=== PATIENT | male | born 1985 | race Hispanic/Latino ===

== ENCOUNTER 2018-10-10 17:08 | Emergency (ER) | payer BC ==
--- NOTE | 2018-10-10 17:14 | Emergency Department Report ---
Blank Doc - Documentation Documentation: This is a 33-year-old male that presents with left knee pain. Denies any inju katheryn. This initial assessment/diagnostic orders/clinical plan/treatment(s) is/are subject to change based on patient's health status, clinical progression and re- assessment by fellow clinical providers in the ED. Further treatment and workup at subsequent clinical providers discretion. Patient/guardians urged not to elope from the ED as their condition may be serious if not clinically assessed and managed. Initial orders include: 1- Patient sent to [facility] for further evaluation and treatment
[2018-10-10 17:15] VITALS: BP 142/92
--- NOTE | 2018-10-10 19:50 | Emergency Department Report ---
ED Lower Extremity HPI - General Chief Complaint: Extremity Problem,Nontraumatic Stated Complaint: LT KNEE PAIN Time Seen by Provider: 10/10/18 17:13 Source: patient Mode of arrival: Ambulatory Limitations: No Limitations - History of Present Illness Initial Comments: 33yo male stated that he has gradual L knee pain without injury over the past days. He reports that his knee is warm, aching and tender to touch. Pt stated that he can not remember injuring his L knee directly, he then stated that he has ate fish recently and that it could be a correlation with his pain. Onset/Timin -: days(s) Injury: Knee: Left Type of Injury: unknown Place: other (Pt stated that it has a gradual onset) Severity: moderate Severity scale (0 -10): 7 Improves With: rest Worsens With: movement Associated Symptoms: able to partially bear weight - Related Data Previous Rx's Medication Instructions Recorded Last Taken Type Naproxen [EC-Naproxen] 500 mg PO BID 7 Days #14 tablet. 10/10/18 Unknown Rx methylPREDNISolone [Medrol 4MG 4 mg PO QDAY #21 tab.ds.pk 10/10/18 Unknown Rx DOSEPAK (21 tabs)] Allergies Allergy/AdvReac Type Severity Reaction Status Date / Time No Known Allergies Allergy Verified 10/10/18 17:09 ED Review of Systems ROS: Stated complaint: LT KNEE PAIN Other details as noted in HPI Comment: All other systems reviewed and negative ED Past Medical Hx - Past Medical History Previous Medical History?: Yes Additional medical history: Gout - Surgical History Past Surgical History?: Yes Additional Surgical History: Lithotripsy - Social History Smoking Status: Never Smoker Substance Use Type: None - Medications Home Medications: Home Medications Medication Instructions Recorded Confirmed Last Taken Type Naproxen [EC-Naproxen] 500 mg PO BID 7 Days #14 tablet. 10/10/18 Unknown Rx methylPREDNISolone [Medrol 4MG 4 mg PO QDAY #21 tab.ds.pk 10/10/18 Unknown Rx DOSEPAK (21 tabs)] ED Physical Exam - General Limitations: No Limitations - Expanded Lower Extremity Exam Left Knee exam: Present: full ROM, tenderness, swelling (warmth present in L knee) ED Course Vital Signs 10/10/18 17:13 Temperature 98.7 F Pulse Rate 105 H Respiratory 20 Rate Blood Pressure 142/92 O2 Sat by Pulse 99 Oximetry ED Lower Extremity MDM - Medical Decision Making 33yo male stated that he has gradual L knee pain without injury over the past days. He reports that his knee is warm, aching and tender to touch. Pt stated that he can not remember injuring his L knee directly, he then stated that he has ate fish recently and that it could be a correlation with his pain. Pt was given injections of 20mg of Dexmethasone and 30mg of Toradol. Upon discharge, he was given Naproxen 500 BID x 7 days and a prednisone steroid pack. He was instructed to follow a low purine diet. A handout was provided to give additional information on gout. Critical care attestation.: If time is entered above; I have spent that time in minutes in the direct care of this critically ill patient, excluding procedure time. ED Disposition Clinical Impression: Gout attack Disposition: DC-01 TO HOME OR SELFCARE Is pt being admited?: No Does the pt Need Aspirin: No Condition: Good Instructions: Acute Gouty Arthritis (ED) Additional Instructions: Pt was instructed to continue low purine diet. He was also instructed to begin steroid dose pack tomorrow and take Naproxen as needed on 10/11/18 Prescriptions: Naproxen [EC-Naproxen] 500 mg PO BID 7 Days #14 tablet. methylPREDNISolone [Medrol 4MG DOSEPAK (21 tabs)] 4 mg PO QDAY #21 tab.ds.pk Referrals: MARYSE KINNEY MD [Primary Care Provider] - 3-5 Days Forms: Work/School Release Form(ED)
[2018-10-10] MEDS ORDERED: DECADRON IM ONE (19:53)
[2018-10-10] MEDS ORDERED: TORADOL IM ONE (19:55)
== END 2018-10-10 20:17 | disposition home or self-care (01) ==
LOC: ED 17:08
DX: M10.062 Idiopathic gout, left knee (principal)
CPT/HCPCS: 96372; 99282; J1100; J1885

== ENCOUNTER 2018-12-19 18:22 | Emergency (ER) | payer SELFPAY ==
[2018-12-19 18:36] VITALS: BP 140/93
--- NOTE | 2018-12-19 18:43 | Emergency Department Report ---
Blank Doc - Documentation Documentation: 33-year-old male that presents with right foot pain with swelling with hx of g out. Denies any trauma. This initial assessment/diagnostic orders/clinical plan/treatment(s) is/are subject to change based on patient's health status, clinical progression and re- assessment by fellow clinical providers in the ED. Further treatment and workup at subsequent clinical providers discretion. Patient/guardians urged not to elope from the ED as their condition may be serious if not clinically assessed and managed. Initial orders include: 1- Patient sent to [facility] for further evaluation and treatment
[2018-12-19] MEDS ORDERED: methylPREDNISolone Sod Succinate 125 MG/2 ML INJ IM ONE (20:03)
--- NOTE | 2018-12-19 20:05 | Emergency Department Report ---
ED General Adult HPI - General Chief complaint: Extremity Problem,Nontraumatic Stated complaint: RT ANKLE (GOUT) Time Seen by Provider: 12/19/18 18:42 Source: patient Mode of arrival: Ambulatory Limitations: No Limitations - History of Present Illness Initial comments: Patient complains of gout in his left ankle not relieved by Ibuprofen or Cholchicine. patient states the pain has been present since tuesday. Denies fever - Related Data Previous Rx's Medication Instructions Recorded Last Taken Type Naproxen [EC-Naproxen] 500 mg PO BID 7 Days #14 tablet. 10/10/18 Unknown Rx methylPREDNISolone [Medrol 4MG 4 mg PO QDAY #21 tab.ds.pk 10/10/18 Unknown Rx DOSEPAK (21 tabs)] Prednisone [predniSONE 10 mg 10 mg PO .TAPER #1 tab.ds.pk 12/19/18 Unknown Rx (6-Day Pack, 21 Tabs)] Allergies Allergy/AdvReac Type Severity Reaction Status Date / Time No Known Allergies Allergy Verified 12/19/18 18:26 ED Review of Systems ROS: Stated complaint: RT ANKLE (GOUT) Other details as noted in HPI Constitutional: denies: chills, fever Eyes: denies: eye pain, eye discharge, vision change ENT: denies: ear pain, throat pain Respiratory: denies: cough, shortness of breath, wheezing Cardiovascular: denies: chest pain, palpitations Endocrine: no symptoms reported Gastrointestinal: denies: abdominal pain, nausea, diarrhea Genitourinary: denies: urgency, dysuria Musculoskeletal: denies: back pain, joint swelling, arthralgia Skin: denies: rash, lesions Neurological: denies: headache, weakness, paresthesias Psychiatric: denies: anxiety, depression Hematological/Lymphatic: denies: easy bleeding, easy bruising ED Past Medical Hx - Past Medical History Previous Medical History?: Yes Additional medical history: Gout - Surgical History Past Surgical History?: Yes Additional Surgical History: Lithotripsy - Social History Smoking Status: Never Smoker Substance Use Type: None - Medications Home Medications: Home Medications Medication Instructions Recorded Confirmed Last Taken Type Naproxen [EC-Naproxen] 500 mg PO BID 7 Days #14 tablet. 10/10/18 Unknown Rx methylPREDNISolone [Medrol 4MG 4 mg PO QDAY #21 tab.ds.pk 10/10/18 Unknown Rx DOSEPAK (21 tabs)] Prednisone [predniSONE 10 mg 10 mg PO .TAPER #1 tab.ds.pk 12/19/18 Unknown Rx (6-Day Pack, 21 Tabs)] ED Physical Exam - General Limitations: No Limitations General appearance: alert, in no apparent distress - Head Head exam: Present: atraumatic, normocephalic - Eye Eye exam: Present: normal appearance, PERRL, EOMI - ENT ENT exam: Present: mucous membranes moist - Neck Neck exam: Present: normal inspection - Respiratory Respiratory exam: Present: normal lung sounds bilaterally. Absent: respiratory distress - Cardiovascular Cardiovascular Exam: Present: regular rate, normal rhythm. Absent: systolic murmur, diastolic murmur, rubs, gallop - Rectal Rectal exam: Present: deferred - Extremities Exam Extremities exam: Present: other (left ankle ttp with erythema) - Back Exam Back exam: Present: normal inspection - Neurological Exam Neurological exam: Present: alert, oriented X3 - Psychiatric Psychiatric exam: Present: normal affect, normal mood - Skin Skin exam: Present: warm, dry, intact, normal color. Absent: rash ED Course Vital Signs 12/19/18 18:28 Temperature 98.0 F Respiratory 20 Rate Blood Pressure 140/93 ED Medical Decision Making - Medical Decision Making patient declined pain meds Critical care attestation.: If time is entered above; I have spent that time in minutes in the direct care of this critically ill patient, excluding procedure time. ED Disposition Clinical Impression: Gout Disposition: DC- TO HOME OR SELFCARE Is pt being admited?: No Does the pt Need Aspirin: No Condition: Stable Instructions: Acute Gouty Arthritis (ED) Additional Instructions: return if worse Prescriptions: Prednisone [predniSONE 10 mg (6-Day Pack, 21 Tabs)] 10 mg PO .TAPER #1 tab.ds.pk Referrals: [facility] [Provider Group] - 3-5 Days [facility] [Provider Group] - 3-5 Days Time of Disposition: 20:09
== END 2018-12-19 20:39 | disposition home or self-care (01) ==
LOC: ED 18:22
DX: M10.071 Idiopathic gout, right ankle and foot (principal); Z79.899 Other long term (current) drug therapy
CPT/HCPCS: 96372; 99281; J2930

== ENCOUNTER 2020-03-19 09:50 | Emergency (ER) | payer SELFPAY ==
--- NOTE | 2020-03-19 10:06 | Event Note ---
ED Screening Note ED Screening Note: sob covid expos sat 95 mild fever pmh none This initial assessment/diagnostic orders/clinical plan/treatment(s) is/are subject to change based on patients health status, clinical progression and re- assessment by fellow clinical providers in the ED. Further treatment and workup at subsequent clinical providers discretion. Patient/guardian urged not to elope from the ED as their condition may be serious if not clinically assessed and managed. Initial orders include: xr
[2020-03-19 10:08] VITALS: BP 142/84
--- NOTE | 2020-03-19 10:33 | XRay Report ---
CHEST 2 VIEWS INDICATION / CLINICAL INFORMATION: Shortness of breath COMPARISON: None available. FINDINGS: SUPPORT DEVICES: None. HEART / MEDIASTINUM: No significant abnormality. LUNGS / PLEURA: There are patchy pulmonary opacities in the right midlung and left lower lung. No pne umothorax. ADDITIONAL FINDINGS: No significant additional findings. IMPRESSION: 1. Patchy bilateral pulmonary opacities that may indicate viral pneumonia. Signer Name: Mamadou Meredith MD Signed: 03/19/2020 10:28 AM Workstation Name: [id number]
--- NOTE | 2020-03-19 10:53 | Emergency Department Report ---
ED General Adult HPI - General Chief complaint: Upper Respiratory Infection Stated complaint: FLU Time Seen by Provider: 03/19/20 10:05 Source: patient Mode of arrival: Ambulatory Limitations: No Limitations - History of Present Illness Initial comments: Patient is a 34-year-old male with no past medical history presents emergency department for evaluation of 1 week of flulike symptoms described as dry nonproductive cough, malaise, and mild intermittent shortness of breath. Patient denies sore throat, does have sick contact, does not have Covid testing prior to arrival. Patient denies nausea vomiting or diarrhea, denies poor p.o. intake, denies fever. - Related Data Previous Rx's Medication Instructions Recorded Last Taken Type Naproxen [EC-Naproxen] 500 mg PO BID 7 Days #14 tablet. 10/10/18 Unknown Rx methylPREDNISolone [Medrol 4MG 4 mg PO QDAY #21 tab.ds.pk 10/10/18 Unknown Rx DOSEPAK (21 tabs)] Prednisone [predniSONE 10 mg 10 mg PO .TAPER #1 tab.ds.pk 12/19/18 Unknown Rx (6-Day Pack, 21 Tabs)] Azithromycin [Zithromax TAB] 250 mg PO QDAY #4 tablet 03/19/20 Unknown Rx predniSONE [Deltasone] 40 mg PO QDAY 4 Days #8 tab 03/19/20 Unknown Rx Allergies Allergy/AdvReac Type Severity Reaction Status Date / Time No Known Allergies Allergy Verified 12/19/18 18:26 ED Review of Systems ROS: Stated complaint: FLU Other details as noted in HPI Comment: All other systems reviewed and negative ED Past Medical Hx - Past Medical History Previous Medical History?: No Additional medical history: Gout - Surgical History Past Surgical History?: Yes Additional Surgical History: Lithotripsy - Social History Smoking Status: Never Smoker Substance Use Type: None - Medications Home Medications: Home Medications Medication Instructions Recorded Confirmed Last Taken Type Naproxen [EC-Naproxen] 500 mg PO BID 7 Days #14 tablet. 10/10/18 Unknown Rx methylPREDNISolone [Medrol 4MG 4 mg PO QDAY #21 tab.ds.pk 10/10/18 Unknown Rx DOSEPAK (21 tabs)] Prednisone [predniSONE 10 mg 10 mg PO .TAPER #1 tab.ds.pk 12/19/18 Unknown Rx (6-Day Pack, 21 Tabs)] Azithromycin [Zithromax TAB] 250 mg PO QDAY #4 tablet 03/19/20 Unknown Rx predniSONE [Deltasone] 40 mg PO QDAY 4 Days #8 tab 03/19/20 Unknown Rx ED Physical Exam - General Limitations: No Limitations General appearance: alert, in no apparent distress - Head Head exam: Present: atraumatic, normocephalic - Eye Eye exam: Present: normal appearance - ENT ENT exam: Present: mucous membranes moist - Neck Neck exam: Present: normal inspection - Respiratory Respiratory exam: Present: rhonchi. Absent: respiratory distress - Cardiovascular Cardiovascular Exam: Present: regular rate, normal rhythm. Absent: systolic murmur, diastolic murmur, rubs, gallop - GI/Abdominal GI/Abdominal exam: Present: soft, normal bowel sounds - Rectal Rectal exam: Present: deferred - Extremities Exam Extremities exam: Present: normal inspection - Back Exam Back exam: Present: normal inspection - Neurological Exam Neurological exam: Present: alert, oriented X3 - Psychiatric Psychiatric exam: Present: normal affect, normal mood - Skin Skin exam: Present: warm, dry, intact, normal color. Absent: rash ED Course Vital Signs 03/19/20 03/19/20 10:05 10:08 Temperature 99.1 F Pulse Rate 102 H Respiratory 16 Rate Blood Pressure 142/84 [Right] O2 Sat by Pulse 93 Oximetry - Reevaluation(s) Reevaluation #1: 03/19/20 11:32 Patient in no acute distress, treated with azithromycin 500 mg p.o. x1 and prednisone 60 mg p.o. x1. ED Medical Decision Making - Lab Data Result diagrams: 03/19/20 11:15 03/19/20 11:15 Labs 03/19/20 03/19/20 03/19/20 11:15 11:15 11:15 WBC 3.6 L RBC 5.30 H Hgb 14.8 Hct 44.6 MCV 84 MCH 28 MCHC 33 RDW 15.2 Plt Count 134 L Lymph % (Auto) 32.2 Maverick % (Auto) 8.8 H Eos % (Auto) 0.2 Baso % (Auto) 0.3 Lymph # (Auto) 1.2 Maverick # (Auto) 0.3 Eos # (Auto) 0.0 Baso # (Auto) 0.0 Seg Neutrophils % 58.5 Seg Neutrophils # 2.1 Sodium 137 Potassium 3.9 Chloride 100.8 Carbon Dioxide 29 Anion Gap 11 BUN 8 L Creatinine 1.0 Estimated GFR > 60 BUN/Creatinine Ratio 8 Glucose 107 H Calcium 8.2 L Ferritin 712.4 H Total Bilirubin 0.50 AST 93 H ALT 79 H Alkaline Phosphatase 40 Lactate Dehydrogenase 415 H C-Reactive Protein 1.40 H Total Protein 7.3 Albumin 3.8 L Albumin/Globulin Ratio 1.1 Procalcitonin 03/19/20 11:15 WBC RBC Hgb Hct MCV MCH MCHC RDW Plt Count Lymph % (Auto) Maverick % (Auto) Eos % (Auto) Baso % (Auto) Lymph # (Auto) Maverick # (Auto) Eos # (Auto) Baso # (Auto) Seg Neutrophils % Seg Neutrophils # Sodium Potassium Chloride Carbon Dioxide Anion Gap BUN Creatinine Estimated GFR BUN/Creatinine Ratio Glucose Calcium Ferritin Total Bilirubin AST ALT Alkaline Phosphatase Lactate Dehydrogenase C-Reactive Protein Total Protein Albumin Albumin/Globulin Ratio Procalcitonin < 0.05 Vital Signs 03/19/20 03/19/20 10:05 10:08 Temperature 99.1 F Pulse Rate 102 H Respiratory 16 Rate Blood Pressure 142/84 [Right] O2 Sat by Pulse 93 Oximetry Critical care attestation.: If time is entered above; I have spent that time in minutes in the direct care of this critically ill patient, excluding procedure time. ED Disposition Clinical Impression: Pneumonia, unspecified organism Disposition: DC-01 TO HOME OR SELFCARE Is pt being admited?: No Condition: Stable Instructions: COVID-19, COVID-19: How to Protect Yourself and Others - CDC, Community-Acquired Pneumonia, Adult, Mijn-ea-Qbag, Bacterial Pneumonia (ED) Prescriptions: predniSONE [Deltasone] 40 mg PO QDAY 4 Days #8 tab Azithromycin [Zithromax TAB] 250 mg PO QDAY #4 tablet Referrals: [facility]IMARY [facility]ARE, [Primary Care Provider] - 3-5 Days
[2020-03-19] MEDS ORDERED: AZITHROMYCIN 250 MG TAB PO ONE (11:24)
[2020-03-19] MEDS ORDERED: predniSONE 20 MG TAB PO ONE (11:33)
[2020-03-19 11:46] LABS: Basophils % (Auto) 0.3 % (0.0-1.8); Eosinophils % (Auto) 0.2 % (0.0-4.3); Hematocrit 44.6 % (35.5-45.6); Hemoglobin 14.8 gm/dl (11.8-15.2); Lymphocytes # (Auto) 1.2 K/mm3 (1.2-5.4); Lymphocytes % (Auto) 32.2 % (13.4-35.0); Mean Corpuscular HGB Conc 33 % (32-34); Mean Corpuscular Volume 84 fl (84-94); Monocytes # (Auto) 0.3 K/mm3 (0.0-0.8); Monocytes % (Auto) 8.8 % (0.0-7.3); Platelet Count 134 K/mm3 (140-440); Red Cell Distribution Width 15.2 % (13.2-15.2)
[2020-03-19 12:29] LABS: Alanine Aminotransferase 79 units/L (7-56); Albumin 3.8 g/dL (3.9-5); BUN/Creatinine Ratio 8; Blood Urea Nitrogen 8 mg/dL (9-20); Calcium 8.2 mg/dL (8.4-10.2); Hemolysis Index 10
== END 2020-03-19 13:17 | disposition home or self-care (01) ==
LOC: ED 09:50
DX: J18.9 Pneumonia, unspecified organism (principal); M10.9 Gout, unspecified; Z79.899 Other long term (current) drug therapy; Z98.890 Other specified postprocedural states
CPT/HCPCS: 36415; 71046; 80053; 82728; 83615; 84145; 85025; 86140; 99283; J7512

== ENCOUNTER 2020-11-27 12:29 | Emergency (ER) | payer SELFPAY ==
--- NOTE | 2020-11-27 14:18 | Emergency Department Report ---
ED General Adult HPI - General Chief complaint: Extremity Problem,Nontraumatic Stated complaint: PAIN IN RT LEG/TINGLING Time Seen by Provider: 11/27/20 13:55 Source: patient Mode of arrival: Ambulatory Limitations: No Limitations - History of Present Illness Initial comments: 35-year-old male patient with history of palpitations presents with complaints of right leg pain x1 week. Patient states the pain seemed to begin in his low back and buttock and right hip, however now the pain is just in his thigh and his lower leg. He does admit to some numbness and tingling into the foot. He describes the pain as shooting and cramping. Ibuprofen alleviates the pain per patient. He denies any history of DVT/PE, difficulty with ambulation, swelling of the leg or skin changes. - Related Data Previous Rx's Medication Instructions Recorded Last Taken Type Naproxen [EC-Naproxen] 500 mg PO BID 7 Days #14 tablet. 10/10/18 Unknown Rx methylPREDNISolone [Medrol 4MG 4 mg PO QDAY #21 tab.ds.pk 10/10/18 Unknown Rx DOSEPAK (21 tabs)] Prednisone [predniSONE 10 mg 10 mg PO .TAPER #1 tab.ds.pk 12/19/18 Unknown Rx (6-Day Pack, 21 Tabs)] Azithromycin [Zithromax TAB] 250 mg PO QDAY #4 tablet 03/19/20 Unknown Rx predniSONE [Deltasone] 40 mg PO QDAY 4 Days #8 tab 03/19/20 Unknown Rx Naproxen 500 mg PO BID PRN #20 tablet 11/27/20 Unknown Rx methocarbamoL [Methocarbamol] 750 - 1,500 mg PO TID PRN #24 11/27/20 Unknown Rx tablet Allergies Allergy/AdvReac Type Severity Reaction Status Date / Time No Known Allergies Allergy Verified 12/19/18 18:26 ED Review of Systems ROS: Stated complaint: PAIN IN RT LEG/TINGLING Other details as noted in HPI Constitutional: denies: chills, diaphoresis, fever, malaise, weakness Respiratory: denies: cough, shortness of breath Cardiovascular: denies: chest pain Gastrointestinal: denies: abdominal pain Musculoskeletal: as per HPI Neurological: denies: headache, weakness ED Past Medical Hx - Past Medical History Previous Medical History?: Yes Additional medical history: Gout - Surgical History Past Surgical History?: Yes Additional Surgical History: Lithotripsy - Social History Smoking Status: Never Smoker Substance Use Type: None - Medications Home Medications: Home Medications Medication Instructions Recorded Confirmed Last Taken Type Naproxen [EC-Naproxen] 500 mg PO BID 7 Days #14 tablet. 10/10/18 Unknown Rx methylPREDNISolone [Medrol 4MG 4 mg PO QDAY #21 tab.ds.pk 10/10/18 Unknown Rx DOSEPAK (21 tabs)] Prednisone [predniSONE 10 mg 10 mg PO .TAPER #1 tab.ds.pk 12/19/18 Unknown Rx (6-Day Pack, 21 Tabs)] Azithromycin [Zithromax TAB] 250 mg PO QDAY #4 tablet 03/19/20 Unknown Rx predniSONE [Deltasone] 40 mg PO QDAY 4 Days #8 tab 03/19/20 Unknown Rx Naproxen 500 mg PO BID PRN #20 tablet 11/27/20 Unknown Rx methocarbamoL [Methocarbamol] 750 - 1,500 mg PO TID PRN #24 11/27/20 Unknown Rx tablet ED Physical Exam - General Limitations: No Limitations General appearance: alert, in no apparent distress, obese - Head Head exam: Present: atraumatic, normocephalic - Eye Eye exam: Present: normal appearance - Neck Neck exam: Present: normal inspection - Respiratory Respiratory exam: Present: normal lung sounds bilaterally. Absent: respiratory distress - Cardiovascular Cardiovascular Exam: Present: regular rate, normal rhythm - Back Exam Back exam: Present: full ROM. Absent: paraspinal tenderness, vertebral tenderness - Expanded Back Exam Expanded Back exam: Absent: saddle anesthesia Back exam: Positive Straight Leg Raise: Right - Neurological Exam Neurological exam: Present: alert, oriented X3. Absent: normal gait (Mildly antalgic favoring right leg) - Psychiatric Psychiatric exam: Present: normal affect, normal mood - Skin Skin exam: Present: warm, dry, intact, normal color. Absent: rash ED Course Vital Signs 11/27/20 12:46 Temperature 99.0 F Pulse Rate 88 Respiratory 18 Rate Blood Pressure 141/80 O2 Sat by Pulse 97 Oximetry ED Medical Decision Making - Radiology Data Radiology results: report reviewed DUPLEX DOPPLER LOWER EXTREMITY VEINS, RIGHT INDICATION / CLINICAL INFORMATION: pain in thigh and calf. TECHNIQUE: Duplex doppler imaging was performed through the veins of the right lower extremity using venous compression and other maneuvers. COMPARISON: None available. FINDINGS: RIGHT COMMON FEMORAL VEIN: Negative. RIGHT FEMORAL VEIN: Negative. RIGHT POPLITEAL VEIN: Negative. RIGHT CALF VEINS: Negative. ADDITIONAL FINDINGS: None. IMPRESSION: 1. No sonographic evidence for DVT in the right lower extremity. - Medical Decision Making 35-year-old male patient with history of palpitations presents with complaints of right leg pain x1 week. Patient states the pain seemed to begin in his low back and buttock and right hip, however now the pain is just in his thigh and his lower leg. He does admit to some numbness and tingling into the foot. He describes the pain as shooting and cramping. Ibuprofen alleviates the pain per patient. He denies any history of DVT/PE, difficulty with ambulation, swelling of the leg or skin changes. Ultrasound is negative for DVT. Positive straight leg test on the right on exam. Suspect sciatica. Will treat with naproxen, Robaxin, stretching, and icing. Recommend patient follow-up with PCP in 3 to 5 days. He is well- appearing and stable for discharge home. Strict return precautions were discussed in detail patient verbalizes understanding. Critical care attestation.: If time is entered above; I have spent that time in minutes in the direct care of this critically ill patient, excluding procedure time. ED Disposition Clinical Impression: Right sided sciatica Disposition: 01 HOME / SELF CARE / HOMELESS Is pt being admited?: No Condition: Stable Additional Instructions: Your ultrasound did not show any blood clots in your leg Prescriptions: methocarbamoL [Methocarbamol] 750 - 1,500 mg PO TID PRN #24 tablet PRN Reason: muscle spasm/tightness Naproxen 500 mg PO BID PRN #20 tablet PRN Reason: pain Referrals: PRIMARY CARE [Referring] - 3-5 Days [facility] [Provider Group] - 3-5 Days
[2020-11-27 14:23] VITALS: BP 121/77
--- NOTE | 2020-11-27 15:07 | Vascular Lab Report ---
DUPLEX DOPPLER LOWER EXTREMITY VEINS, RIGHT INDICATION / CLINICAL INFORMATION: pain in thigh and calf. TECHNIQUE: Duplex doppler imaging was performed through the veins of the right lower extremity using venous comp ression and other maneuvers. COMPARISON: None available. FINDINGS: RIGHT COMMON FEMORAL VEIN: Negative. RIGHT FEMORAL VEIN: Negative. RIGHT POPLITEAL VEIN: Negative. RIGHT CALF VEINS: Negative. ADDITIONAL FINDINGS: None. IMPRESSION: 1. No sonographic evidence for DVT in the right lower extremity. Signer Name: Mamadou Meredith MD Signed: 11/27/2020 3:02 PM Workstation Name: [id number]
== END 2020-11-27 15:42 | disposition home or self-care (01) ==
LOC: ED 12:29
DX: M54.41 Lumbago with sciatica, right side (principal); M79.604 Pain in right leg; Z79.899 Other long term (current) drug therapy
CPT/HCPCS: 99283